=== PATIENT | female | born 1995 | race African-American/Black ===

== ENCOUNTER 2017-01-23 13:53 | Emergency (ER) | payer OTHER, MEDICAID ==
[2017-01-23 14:24] VITALS: BP 142/77; PULSE 76; RESP 14; TEMP 99.6; O2SAT 100
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
[2017-01-23] MEDS ORDERED: ACETAMINOPHEN 325 MG TAB PO ONE (15:30)
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
[2017-01-23] MEDS ORDERED: IBUP-232 PO (15:51)
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
== END 2017-01-23 18:15 | disposition home or self-care (01) ==
LOC: NEPK 13:53
DX: S89.92XA Unspecified injury of left lower leg, initial encounter (principal); S09.93XA Unspecified injury of face, initial encounter; V49.40XA Driver injured in collision with unspecified motor vehicles in traffic accident, initial encounter
CPT/HCPCS: 70450; 70486; 73564; 84703; 99285